=== PATIENT | male | born 1975 | race African-American/Black ===

== ENCOUNTER 2022-09-02 16:20 | Emergency (ER) | payer OTHER ==
[2022-09-02 16:51] VITALS: PULSE 90; RESP 18; TEMP 98.1; BMI 29.5
[2022-09-02 18:42] VITALS: BP 141/95
== END 2022-09-02 18:42 | disposition home or self-care (01) ==
LOC: JERFT 16:20 → JER 16:20 → JERFT 18:42
DX: S22.41XA Multiple fractures of ribs, right side, initial encounter for closed fracture (principal); W17.89XA Other fall from one level to another, initial encounter
CPT/HCPCS: 71046-TC-FY; 99283-25